=== PATIENT | female | born 1975 | race Two or more races ===

== ENCOUNTER 2020-05-11 20:02 | Emergency (ER) | payer SELFPAY ==
--- NOTE | 2020-05-12 01:59 | ER Document Report ---
ED General - General Chief Complaint: Eye Pain Stated Complaint: HEADACHE/PAIN BEHIND RIGHT EYE Time Seen by Provider: 05/12/20 01:58 Mode of Arrival: Ambulatory Information source: Patient Notes: 05/11/20 23:55 - ED Nursing Note by CATALINA GO Num: [id number] : 1975 Patient Age: 45 patient presents to ED from home for c/o right eye pain. patient states the pain has been happening for three days now and rates the pain 5/5. patient states she has had this happen before but not as severe. patient states the light makes it worse. patient denies any nausea, or dizziness, or loss of vision. my notes 45-year-old [place] female arrives with chief complaint of severe right eye pain with right episcopalian pain since 0800 early this morning. Patient denies any prior history of any trauma or abuse or fever or chills or nuchal rigidity spider bites animal bites flea bites tick bites heavy metal exposure earache jaw pain but advises she has positive photophobia and intense pain when light is shining near her right eye. Patient does admit to some nausea but no vomiting. She reports this happened around 3 months ago but it self resolved. These current symptoms have been present for more than 3 days and is worse beginning this morning. Patient denies any prior history of CVA or strokes in family. She denies any history of glaucoma. Boyfriend is outside waiting in car. - HPI Onset: This morning Onset/Duration: Sudden, Persistent, Worse Quality of pain: Stabbing Severity: Severe Pain Level: 5 Associated symptoms: Headache, Nausea Exacerbated by: Movement, Other - light Relieved by: Remaining still, Other - Dark room Similar symptoms previously: Yes Recently seen / treated by doctor: No Past Medical History - Social History Smoking Status: Never Smoker Cigarette use (# per day): No Chew tobacco use (# tins/day): No Smoking Education Provided: No Frequency of alcohol use: None Drug Abuse: None Lives with: Family Family History: Reviewed & Not Pertinent Patient has suicidal ideation: No Patient has homicidal ideation: No Review of Systems - Review of Systems Constitutional: See HPI, Malaise, Weakness EENT: See HPI, Eye pain, Blurred vision Neurological/Psychological: See HPI, Headaches Physical Exam - Vital signs Vitals: Temp Pulse Resp BP Pulse Ox 97.9 F 97 20 164/88 H 98 05/11/20 20:31 05/11/20 20:31 05/11/20 20:31 05/11/20 20:31 05/11/20 20:31 Interpretation: Hypertensive - General General appearance: Anxious, Other - Tearful - HEENT Head: Normocephalic, Atraumatic Eyes: Normal Pupils: PERRL -: right: Pupils uneven - 8 mm Visual piña normal: No - snellen chart chart wnl Ears: Normal Nasal: Normal Mouth/Lips: Normal Mucous membranes: Normal - Respiratory Respiratory status: No respiratory distress Chest status: Nontender Breath sounds: Normal Chest palpation: Normal - Cardiovascular Rhythm: Regular - at home eyeglasses: Labs were -2-hour Heart sounds: Normal auscultation Murmur: No - Abdominal Inspection: Normal Distension: No distension Bowel sounds: Normal Tenderness: Nontender Organomegaly: No organomegaly - Rectal Hemorrhoids: Other - deferred - Genitourinary B[place] exam: Other - deferred - Back Back: Normal - Extremities General upper extremity: Normal inspection General lower extremity: Normal inspection - Neurological Neuro grossly intact: Yes Cognition: Normal Orientation: AAOx4 [place] Coma Scale Eye Opening: Spontaneous [place] Coma Scale Verbal: Oriented [place] Coma Scale Motor: Obeys Commands Kathy Coma Scale Total: 15 Speech: Normal Motor strength normal: LUE, RUE, LLE, RLE Sensory: Normal - Psychological Associated symptoms: Normal affect - Skin Skin Temperature: Warm Skin Moisture: Dry Course - Vital Signs Vital signs: Temp Pulse Resp BP Pulse Ox 97.9 F 97 20 164/88 H 98 05/11/20 20:31 05/11/20 20:31 05/11/20 20:31 05/11/20 20:31 05/11/20 20:31 - Laboratory Result Diagrams: 05/12/20 02:33 05/12/20 02:33 Laboratory results interpreted by me: 05/12/20 02:33 Sodium 134.2 L Chloride 96 L Creatinine 0.49 L Glucose 397 H ALT 55 H Creatine Kinase 29 L - Diagnostic Test Radiology reviewed: Reports reviewed Radiology results interpreted by me: 05/12/20 06:14 Per radiology intact vasculature [place] of [place] Critical Care Note - Critical Care Note Comments: Patient much improved but continue with right eye and headache and therefore was given for morphine IV prior to discharge will observe for least 30 minutes. Discharge - Discharge Clinical Impression: Cluster headache Qualifiers: Headache chronicity pattern: unspecified pattern Intractability: not intractable Qualified Code(s): G44.009 - Cluster headache syndrome, unspecified, not intractable Condition: Fair Disposition: HOME, SELF-CARE Additional Instructions: Follow-up with neurologist return to ER as needed also follow-up with personal doctor as needed. Take medicine as directed. Try to sleep in a dark room today.
[2020-05-12] MEDS ORDERED: NORMAL SALINE 1000 ML 1,000 ML IV ONE (02:11)
[2020-05-12] MEDS ORDERED: PROCHLORPERAZINE EDISYLATE INJ 10 MG/2 ML VIAL IV ONE (02:12)
[2020-05-12] MEDS ORDERED: HYDROMORPHONE HCL INJ/PF 2 MG/ML AMPULE IV ONE (02:12)
[2020-05-12 02:57] LABS: ABSOLUTE BASOPHILS # (AUTO) 0.1 10^3/uL (0.0-0.2); ABSOLUTE EOSINOPHILS # (AUTO) 0.2 10^3/uL (0.0-0.6); ABSOLUTE MONOCYTES (AUTO) 0.7 10^3/uL (0.1-1.4); ABSOLUTE NEUT (AUTO) 5.4 10^3/uL (1.7-8.2); BASOPHILS % (AUTO) 0.7 % (0-2); EOSINOPHILS % (AUTO) 2.6 % (0-6); HEMATOCRIT 43.2 % (36.0-47.0); HEMOGLOBIN 14.8 g/dL (12.0-15.5); LYMPHOCYTES % (AUTO) 32.3 % (13-45); MEAN CORPUSCULAR HEMOGLOBIN 30.9 pg (27.0-33.4); MEAN CORPUSCULAR HGB CONC 34.3 g/dL (32.0-36.0); MEAN CORPUSCULAR VOLUME 90 fl (80-97); MONOCYTES % (AUTO) 7.3 % (3-13); PLATELET COUNT 210 10^3/uL (150-450); RED CELL DISTRIBUTION WIDTH 13.5 % (11.5-14.0); SEGMENTED NEUTROPHILS % (AUTO) 57.1 % (42-78); TOTAL CELLS COUNTED % (AUTO) 100 %; WHITE BLOOD COUNT 9.4 10^3/uL (4.0-10.5)
[2020-05-12 03:15] LABS: ALBUMIN 4.5 g/dL (3.5-5.0); ALKALINE PHOSPHATASE 91 U/L (38-126); ANION GAP 13 (5-19); ASPARTATE AMINO TRANSFERASE 32 U/L (14-36); BILIRUBIN,TOTAL 0.7 mg/dL (0.2-1.3); BLOOD UREA NITROGEN 12 mg/dL (7-20); CALCIUM 9.7 mg/dL (8.4-10.2); CARBON DIOXIDE 25 mmol/L (22-30); CHLORIDE 96 mmol/L (98-107); CREATINE KINASE 29 U/L (30-135); POTASSIUM 4.7 mmol/L (3.6-5.0); TOTAL PROTEIN 7.9 g/dL (6.3-8.2)
[2020-05-12 03:23] LABS: GLUCOSE 397 mg/dL (75-110)
--- NOTE | 2020-05-12 05:01 | RADIOLOGY REPORT (SQ) ---
CLINICAL INDICATION: worst deleon of life. . TECHNIQUE: CT arteriography was obtained of the [place] with multiplanar MIP and/or 3-D angiographic reconstructions. This exam was performed according to our departmental dose-optimization program, which includes automated exposure control, adjustment of the mA and/or kV according to patient size and/or use of iterative reconstruction techniques. COMPARISON: None. CORRELATION: None. FINDINGS: Brain is dictated separately. Artifact from venous opacification The intracranial internal carotid arteries are patent, bilaterally. Middle cerebral arteries are patent centrally. Anterior cerebral arteries are patent centrally. Posterior cerebral arteries are patent centrally. There may be or partial origin of the left posterior cerebral artery. Anterior communicating artery is patent. Posterior communicating arteries are difficult to assess given adjacent venous opacification. Vertebrobasilar system is patent. IMPRESSION: Unremarkable CTA of the [place]. An aneurysm is not identified..
[2020-05-12] MEDS ORDERED: HYDROCODONE/ACETAMINOPHEN 5-325 MG (6 TAB/ER DISP) PO PRN (06:15)
[2020-05-12] MEDS ORDERED: MORPHINE SULFATE 10 MG/ML INJ IV ONE (06:20)
[2020-05-12 06:47] VITALS: BP 141/76
== END 2020-05-12 06:45 | disposition home or self-care (01) ==
LOC: ER 20:02
DX: G44.009 Cluster headache syndrome, unspecified, not intractable (principal); H57.11 Ocular pain, right eye; H53.149 Visual discomfort, unspecified
CPT/HCPCS: 99284; 96361; 96374; 96375; 36415; 82550; 85025; 80053; 84484; 70496; J2270; J1170; J0780; J7030